=== PATIENT | male | born 1950 | race Caucasian/White ===

== ENCOUNTER 2016-06-19 08:51 | Emergency (ER) | payer MEDICARE, MEDICAID ==
[2016-06-19] MEDS ORDERED: ASPIRIN 81 MG TABLET, CHEWABLE PO ONE (09:07)
[2016-06-19 10:41] LABS: ABSOLUTE EOSINOPHILS # (AUTO) 0.1 10^3/uL (0.0-0.6); ABSOLUTE LYMPHOCYTES (AUTO) 1.2 10^3/uL (0.5-4.7); ABSOLUTE MONOCYTES (AUTO) 0.4 10^3/uL (0.1-1.4); ABSOLUTE NEUT (AUTO) 3.8 10^3/uL (1.7-8.2); BASOPHILS % (AUTO) 0.7 % (0-2); EOSINOPHILS % (AUTO) 0.9 % (0-6); HEMATOCRIT 32.5 % (37.9-51.0); HEMOGLOBIN 10.4 g/dL (13.5-17.0); HGB HCT DIFFERENCE -1.3; LYMPHOCYTES % (AUTO) 22.4 % (13-45); MEAN CORPUSCULAR HEMOGLOBIN 25.9 pg (27.0-33.4); MEAN CORPUSCULAR HGB CONC 31.9 g/dL (32.0-36.0); MEAN CORPUSCULAR VOLUME 81 fl (80-97); MONOCYTES % (AUTO) 7.3 % (3-13); RED BLOOD COUNT 4.01 10^6/uL (4.35-5.55); RED CELL DISTRIBUTION WIDTH 15.2 % (11.5-14.0); SEGMENTED NEUTROPHILS % (AUTO) 68.7 % (42-78); WHITE BLOOD COUNT 5.6 10^3/uL (4.0-10.5)
[2016-06-19 11:08] LABS: ALANINE AMINOTRANSFERASE 13 U/L (21-72); ALBUMIN 4.1 g/dL (3.5-5.0); ALKALINE PHOSPHATASE 64 U/L (38-126); ANION GAP 10 (5-19); ASPARTATE AMINO TRANSFERASE 14 U/L (17-59); BILIRUBIN,TOTAL 0.6 mg/dL (0.2-1.3); BLOOD UREA NITROGEN 24 mg/dL (7-20); CALCIUM 9.7 mg/dL (8.4-10.2); CARBON DIOXIDE 28 mmol/L (22-30); CHLORIDE 103 mmol/L (98-107); CREATINE KINASE 35 U/L (55-170); GLUCOSE 127 mg/dL (75-110); POTASSIUM 4.7 mmol/L (3.6-5.0); SODIUM 141.1 mmol/L (137-145); TOTAL PROTEIN 7.1 g/dL (6.3-8.2)
[2016-06-19 11:19] LABS: CREATINE KINASE MB < 0.22 ng/mL (<4.55); TROPONIN I < 0.012 ng/mL
[2016-06-19] MEDS ORDERED: NORMAL SALINE 1000 ML 1,000 ML IV ONE (11:47)
--- NOTE | 2016-06-19 11:54 | ER Document Report ---
ED General - General Chief Complaint: Chest Pain Stated Complaint: CHEST PAIN Time seen by provider: 11:49 Mode of Arrival: Ambulatory Information source: Patient Notes: 66-year-old male who complains about 3 episodes of sharp left mid sternal chest pain at rest 3 days ago. He reports each episode lasted a few minutes and then resolved. He reports no associated shortness breath, diaphoresis, nausea, vomiting. The patient reports that approximately 2 weeks ago he has several days of diffuse body aches splint nonproductive cough though he does not clearly remember. He says based on those symptoms his primary care physician Dr. Linda Mcmillan in [place] ordered a chest x-ray. He doesn't know the results of that says a based on that he had a CT scan of his chest ordered. He says both of these were done on an outpatient basis at [facility] in [facility] and that after CT scan was done he was called by his physician's office told that he had blood clots in his lungs and was started on Xarelto. He reports starting out on the and then developed chest pain on the . He reports he's had no further episodes of chest pain since then. He reports that he has not slept at all since the night of the and thinks that this is because of the Xarelto. His concern and presentation now seems to be more the inability to sleep over the past 3 days then chest discomfort. He is symptom-free now. He reports he has had some recent car travel. He denies any fever, chills, current cough, hematemesis, hematochezia, melena, swelling to extremities, pain numbness weakness to extremities. He reports he has several family members with peripheral arterial disease and thinks he has 1 sister with blood clots. Physical Exam: General: Alert, appears well. HEENT: Normocephalic. Atraumatic. PERRLA. Extraocular movements intact. Oropharynx clear. Neck: Supple. Non-tender. Respiratory: No respiratory distress. Clear and equal breath sounds bilaterally. Cardiovascular: Regular rate and rhythm. Abdominal: Normal Inspection. Soft, non-tender. No distension. Normal Bowel Sounds. Back: Non-tender. No deformity or step off. Extremities: Moves all four extremities. Upper extremities: Normal inspection. Non-tender. Normal color. Normal ROM. Normal temperature. Lower extremities: Normal inspection. Non-tender. No edema. Normal color. Normal ROM. Normal temperature. No Homans sign bilaterally Neurological: Speech clear mentation normal moves all extremities well Psychological: Normal affect. Normal Mood. Skin: Warm. Dry. Normal color. TRAVEL OUTSIDE OF THE [place] IN LAST 30 DAYS: No - Related Data Allergies/Adverse Reactions: No Known Allergies Allergy (Verified 06/19/16 09:07) Past Medical History - Social History Smoking Status: Former Smoker Chew tobacco use (# tins/day): No Frequency of alcohol use: None Drug Abuse: None Family History: Other - Peripheral arterial disease and blood clots Patient has suicidal ideation: No Patient has homicidal ideation: No Renal/ Medical History: Denies: Hx Peritoneal Dialysis GI Medical History: Reports: Hx Gastroesophageal Reflux Disease, Hx Ulcer, Other - Patient reports several months ago had some blood loss and underwent upper and lower endoscopy that he reports showed a bleeding source in his esophagus and this has resolved. Endoscopies were otherwise normal - Immunizations Hx Diphtheria, Pertussis, Tetanus Vaccination: Yes Hx Pneumococcal Vaccination: 01/08/14 Review of Systems - Review of Systems Constitutional: denies: Chills, Fever EENT: denies: Ear pain, Throat pain Cardiovascular: See HPI Respiratory: denies: Short of breath, Wheezing Gastrointestinal: denies: Abdominal pain, Diarrhea, Nausea, Vomiting, Blood in vomit, Black stools, Rectal bleeding Genitourinary: denies: Burning, Dysuria Musculoskeletal: denies: Back pain, Muscle pain, Leg swelling Neurological/Psychological: denies: Weakness, Numbness Physical Exam - Vital signs Vitals: Temp Pulse Resp BP Pulse Ox 97.6 F 74 20 142/84 H 98 06/19/16 09:05 06/19/16 09:05 06/19/16 09:05 06/19/16 09:05 06/19/16 09:05 Course - Re-evaluation Re-evalutation: 06/19/16 13:09 Multiple nurses were unable to obtain IV access and the patient receives to be doing part to patient's anxiety. As noted earlier the patient has no complaints now except for inability to sleep for the past 3 days. The patient is remained hemodynamically stable and believe had he been admitted for pulmonary embolism he would be cleared for discharge at this point. I have not found specific evidence that Xarelto might cause his sleeplessness but as he is reporting that this began after taking that medicine going to switch him to Pradaxa also prescribe Ambien to help sleep. Is also instructed to follow with his physician Dr. Mcmillan is week for recheck - Vital Signs Vital signs: Temp Pulse Resp BP Pulse Ox 98.1 F 74 13 169/94 H 98 06/19/16 11:51 06/19/16 09:05 06/19/16 11:51 06/19/16 11:51 06/19/16 11:51 - Laboratory Result Diagrams: 06/19/16 10:07 06/19/16 10:07 Laboratory results interpreted by me: 06/19/16 06/19/16 10:07 10:07 RBC 4.01 L Hgb 10.4 L Hct 32.5 L MCH 25.9 L MCHC 31.9 L RDW 15.2 H BUN 24 H Glucose 127 H AST 14 L ALT 13 L Creatine Kinase 35 L - Diagnostic Test Radiology reviewed: Image reviewed, Reports reviewed - EKG Interpretation by Me Additional EKG results interpreted by me: 06/19/16 11:54 EKG reviewed by myself shows sinus rhythm at 71 no acute changes no significant change compared to 03/07/2014 Discharge - Discharge Clinical Impression: Anxiety Insomnia Qualifiers: Insomnia type: unspecified Qualified Code(s): G47.00 - Insomnia, unspecified Pulmonary embolism Qualifiers: Pulmonary embolism type: other Chronicity: acute Acute cor pulmonale presence: without acute cor pulmonale Qualified Code(s): I26.99 - Other pulmonary embolism without acute cor pulmonale Condition: Stable Disposition: HOME, SELF-CARE Additional Instructions: Insomnia Everybody has trouble sleeping now and then. When it becomes a frequent problem, you must look for an underlying cause. Depression can interfere with sleep. Anxiety keeps people from falling asleep, while true depression causes fitful sleep and early awakening. If you think anxiety or depression might be your problem, your doctor can help. Many medicines can interfere with sleep. Try cutting back or eliminating caffeine. Watch out for "energizing" vitamins and herbs! Alcohol interferes powerfully with normal sleep. "Rebound insomnia" results when you stop taking sedating medicines like antihistamines, antianxiety medicine, or sleeping pills. Any medical problem that causes pain or bladder discomfort can interfere with sleep. Discuss any problem you have with your doctor. Get regular exercise. Have regular sleep times. Don't "sleep in." Avoid late afternoon naps. Sleeping pills may be temporarily helpful, but are never a long-term solution. Anxiety The physician feels that some of your health problems are being caused by anxiety. Anxiety affects your health in many ways. Anxiety alone can cause palpitations, sweats, chest pains, abdominal pains, shortness of breath, and headaches. It contributes to ulcer disease, high blood pressure, irritable bowel syndrome, and has been shown to cause flare-ups of many other diseases. Anxiety is not a simple disorder to treat. If the anxiety is due to recent life stresses, you may simply need time to "work through" the changes. If the anxiety is due to an underlying unhappiness with yourself or due to psychiatric disturbance, professional help will be needed. Your physician can refer you for further help if needed. Anti-anxiety medication is occasionally given if the stress is acute or if you are having trouble sleeping. Chronic or frequent use of these medications is not a good idea because the body becomes reliant on it, preventing you from dealing with life's normal stresses. Stop taking Xarelto and take Pradaxa instead Prescriptions: Zolpidem Tartrate [Ambien 5 mg Tablet] 5 mg PO QHS PRN #10 tablet PRN Reason: Sleep Or Insomnia Dabigatran Etexilate Mesylate [Pradaxa 150 mg Capsule] 150 mg PO Q12 #60 capsule Referrals: CHRISTINE MCMILLAN [Primary Care Provider] - Follow up in 3-5 days
[2016-06-19] MEDS ORDERED: LORAZEPAM 1 MG TABLET PO ONE (12:04)
[2016-06-19 13:48] VITALS: BP 148/89
--- NOTE | 2016-06-19 20:10 | EKG REPORT ---
SEVERITY:- NORMAL ECG - SINUS RHYTHM : Confirmed by: Abby Garza 19-Jun-2016 20:09:37
== END 2016-06-19 13:50 | disposition home or self-care (01) ==
LOC: ER 08:51
DX: F41.9 Anxiety disorder, unspecified (principal); G47.00 Insomnia, unspecified; I26.99 Other pulmonary embolism without acute cor pulmonale; R07.9 Chest pain, unspecified; K21.9 Gastro-esophageal reflux disease without esophagitis; Z79.02 Long term (current) use of antithrombotics/antiplatelets
CPT/HCPCS: 93005; 99285; 36415; 82553; 82550; 85025; 80053; 84484; 71010; 93010; A9270